=== PATIENT | male | born 1985 | race Hispanic/Latino ===

== ENCOUNTER 2024-05-28 12:34 | Observation (INO) | payer SELFPAY ==
[2024-05-28] MEDS ORDERED: ONDANSETRON 4 MG/2 ML VIAL ONE ×2 (12:58→17:19)
[2024-05-28] MEDS ORDERED: CEFAZOLIN SODIUM 1 GM/VIAL ONE (12:59)
[2024-05-28] MEDS ORDERED: FENTANYL CITR 100 MCG/2 ML ONE ×4 (12:59→16:52)
[2024-05-28] MEDS ORDERED: NA CHLORIDE 0.9% 100 ML ONE (13:00)
[2024-05-28] MEDS ORDERED: NA CHLORIDE 0.9% 1,000 ML ONE (13:00)
[2024-05-28 13:05] LABS: Absolute Eosinophils 0.1 K/uL (0-0.5); Absolute Lymphocytes (CBC) 3.1 K/uL (0.7-4.9); Absolute Monocytes 0.6 K/uL (0.1-1.3); Absolute Neutrophil 2.7 K/uL (1.8-8.0); Basophils % 0.5 % (0-1.3); Eosinophils % 1.8 % (0-4.4); Hematocrit 43.3 % (39.6-49.0); Hemoglobin 14.5 g/dL (13.6-17.9); Lymphocytes % 47.7 % (15.3-44.8); MCHC 33.5 g/dL (32.0-36.0); MCV 95.4 fL (80-100); Monocytes % 8.7 % (3.3-12.3); Neutrophils % 41.3 % (41.7-73.7); Platelets 162 thou/uL (152-406); RBC Red Blood Cell Count 4.54 M/uL (4.33-5.43); Red Cell Distribution Width 13.1 % (12.1-15.2)
[2024-05-28 13:15] LABS: Anion Gap 11.3 mEq/L (5.0-15.0); Potassium 3.3 mEq/L (3.5-5.1)
--- NOTE | 2024-05-28 14:09 | RAD REPORT ---
EXAM DESCRIPTION: RAD - Tib Fib Right - 05/28/2024 1:10 pm CLINICAL HISTORY: anterior tibia injury COMPARISON: No comparisons TECHNIQUE: Right tibia and fibula, 2 views. FINDINGS: Soft tissue irregularity with some soft tissue gas along the antro lateral aspect of the k nee and adjacent proximal lower leg. No fracture is identified. There is no dislocation or periosteal reaction noted. No acute or suspicio us bony finding. No radiopaque foreign body. IMPRESSION: Soft tissue abnormalities as above. No acute osseus findings.
--- NOTE | 2024-05-28 14:25 | ER ---
Nurse's Notes [facility] Name: Tammy Dickson Age: 39 yrs Sex: Male : 1985 Arrival Date: 05/28/2024 Time: 12:34 Bed 16 Private MD: Diagnosis: Laceration without foreign body of lower leg Presentation: 05/28 13:14 Chief complaint: Patient states: injured right lower leg while working. Coronavirus kj2 screen: At this time, the client does not indicate any symptoms associated with coronavirus-19. Ebola Screen: No symptoms or risks identified at this time. Initial Sepsis Screen: Does the patient meet any 2 criteria? No. Patient's initial sepsis screen is negative. Does the patient have a suspected source of infection? No. Patient's initial sepsis screen is negative. Risk Assessment: Do you want to hurt yourself or someone else? Patient reports no desire to harm self or others. Onset of symptoms was May 28, 2024. 13:14 Acuity: SRINIVASA 3 kj2 13:56 Method Of Arrival: Ambulatory kj2 Triage Assessment: 13:56 General: Appears uncomfortable, Behavior is cooperative. Injury Description: Laceration kj2 sustained to right leg. Historical: - Allergies: 14:24 No Known Allergies; kj2 - Home Meds: 14:24 None [Active]; kj2 - PMHx: 14:24 None; kj2 - PSHx: 14:24 None; kj2 - Immunization history:: Adult Immunizations unknown. - Infectious Disease History:: Denies. - Social history:: Smoking status: Patient/guardian denies using tobacco products. - Code Status:: Full code. Screenin:13 [facility] ED Fall Risk Assessment (Adult) History of falling in the last 3 months, kj2 including since admission Yes- single mechanical fall (1 pt) Confusion or Disorientation No (0 pts) Intoxicated or Sedated No (0 pts) Impaired Gait Yes (1 pt) Mobility Assist Device Used Yes (1 pt) Altered Elimination No (0 pt) Score/Fall Risk Level 0 - 2 = Low Risk. Abuse screen: Denies threats or abuse. Denies injuries from another. Nutritional screening: No deficits noted. Tuberculosis screening: No symptoms or risk factors identified. Assessment: 12:52 General: Appears uncomfortable, Behavior is cooperative. Pain: Complains of pain in kj2 right lower leg Pain currently is 10 out of 10 on a pain scale. Neuro: Level of Consciousness is awake, alert, obeys commands, Oriented to person, place, time, situation. Cardiovascular: Capillary refill < 3 seconds. Respiratory: Airway is patent Respiratory effort is even, unlabored. Musculoskeletal: Swelling lower leg cut open. 14:57 Reassessment: Patient appears in no apparent distress at this time. Patient and/or kj2 family updated on plan of care and expected duration. Pain level reassessed. Patient is alert, oriented x 3, equal unlabored respirations, skin warm/dry/pink. Vital Signs: 13:12 BP 136 / 90; Pulse 68; Resp 20; Temp 98.4; Pulse Ox 97% on R/A; kj2 13:58 BP 122 / 83; Pulse 65; Resp 18; Pulse Ox 97% on R/A; kj2 14:37 BP 117 / 80; Pulse 67; Resp 17; Pulse Ox 100% on R/A; kj2 ED Course: 12:44 Patient arrived in ED. ko1 12:47 Dylon Gabriel MD is Attending Physician. ec2 12:52 Melissa Sanchez, VALDEZ is Primary Nurse. kj2 12:54 Assist provider with laceration repair Dressed with 4X4s, Kerlix. kj2 12:58 Initial lab(s) drawn, by me, sent to lab. Inserted saline lock: 18 gauge in left mb9 antecubital area, using aseptic technique. Blood collected. Flushed with 10 mL NS. 12:59 Placed in gown. Bed in low position. Call light in reach. Side rails up X 1. Door mb9 closed. Noise minimized. Warm blanket given. Pillow given. 13:12 Tib Fib Right XRAY In Process Unspecified. EDMS 13:16 Triage completed. kj2 13:16 Arm band placed on. kj2 13:17 Provided Education on: call light, fall precaution. kj2 14:23 Knee Left 3 View XRAY In Process Unspecified. EDMS 14:24 Kel Partida is Hospitalizing Provider. ec2 14:39 1439 CM met with patient and Carolina at bedside in the ED exam room.Patient ane identified by name and . Demographic sheet confirmed and change sent to appropriate personnel. Prior to admission, patient reports he performs ADLs independently and without physical limitations. Patient reports no HH, home oxygen, DME or other medical services. No MPOA in place at this time. Patient reports he does not have a PCP at this time.CM provided community resource packet to include local clinics and information about medication assistance. wishes to return home upon discharge and his Carolina states she will transport him home. CM team will continue to follow and coordinate care. 14:56 Patient admitted, IV remains in place. kj2 14:56 Report given to VALDEZ Tran with OR. kj2 14:58 Dressings: 4X4s joy bandage. kj2 Administered Medications: 13:05 Drug: Ondansetron IVP 4 mg IVP once; over 2 minutes Route: IVP; Site: left antecubital; kj2 13:37 Follow up: Response: No adverse reaction; Pain is decreased kj2 13:08 Drug: fentaNYL (PF) IVP 50 mcg IVP once Route: IVP; Site: left antecubital; kj2 13:37 Follow up: Response: No adverse reaction; Pain is decreased kj2 13:10 Drug: ceFAZolin IVPB 1 grams IVPB once Route: IVPB; Site: left antecubital; kj2 13:46 Follow up: IV Status: Completed infusion; IV Intake: 100ml kj2 13:11 Drug: NS 0.9% IV 1000 ml IV at 1 bolus Per protocol; 1000 mL bolus Route: IV; Rate: 1 kj2 bolus; Site: left antecubital; 14:55 Follow up: Response: No adverse reaction; IV Status: Completed infusion; IV Intake: kj2 1000ml 14:37 Drug: fentaNYL (PF) IVP 50 mcg IVP once Route: IVP; Site: left antecubital; kj2 14:54 Follow up: Response: No adverse reaction; Pain is decreased kj2 Medication: 13:57 VIS not applicable for this client. kj2 Intake: 13:46 IV: 100ml; Total: 100ml. kj2 14:55 IV: 1000ml; Total: 1100ml. kj2 Outcome: 14:24 Decision to Hospitalize by Provider. ec2 14:57 Admitted to OR accompanied by nurse, via wheelchair, kj2 14:57 Condition: stable 14:57 Instructed on the need for admit, 14:59 Patient left the ED. kj2 Signatures: Dispatcher [employer] Анна Rogers RN RN ko1 Kathy, Marielena, RN RN mb9 Dylon Gabriel MD MD ec2 Melissa Sanchez RN RN kj2 Joy Dumont RN RN ane
--- NOTE | 2024-05-28 14:25 | EDPHYS ---
Physician Documentation [facility] Name: Tammy Dickson Age: 39 yrs Sex: Male : 1985 Arrival Date: 05/28/2024 Time: 12:34 Bed 16 Private MD: ED Physician Dylon Gabriel HPI: 05/28 12:49 This 39 yrs old Male presents to ER via Unassigned with complaints of tib/fib ec2 injury. 12:49 Patient arrives today for evaluation of a tib-fib injury. States that he injured ec2 himself with a hook on the right anterior tibia. Tetanus status updated 2 years ago. No significant medical problems, no medication allergies.. Historical: - Allergies: 14:24 No Known Allergies; kj2 - Home Meds: 14:24 None [Active]; kj2 - PMHx: 14:24 None; kj2 - PSHx: 14:24 None; kj2 - Immunization history:: Adult Immunizations unknown. - Infectious Disease History:: Denies. - Social history:: Smoking status: Patient/guardian denies using tobacco products. - Code Status:: Full code. ROS: 12:49 Constitutional: as per hpi ec2 Exam: 12:49 Constitutional: GEN: NAD Head: atraumatic Eyes: EOMI Ears: External ears are ec2 normal. CV: regular rate LUNGS: no respiratory distress ABD: non-distended SKIN: Right lower extremity with approximately 6 cm laceration with underlying soft tissue, muscle belly exposed. MSK: No obvious bony deformities of the right tibia, intact distal neurovascular status, intact strength. Vital Signs: 13:12 BP 136 / 90; Pulse 68; Resp 20; Temp 98.4; Pulse Ox 97% on R/A; kj2 13:58 BP 122 / 83; Pulse 65; Resp 18; Pulse Ox 97% on R/A; kj2 14:37 BP 117 / 80; Pulse 67; Resp 17; Pulse Ox 100% on R/A; kj2 MDM: 12:47 Patient medically screened. ec2 12:49 Data reviewed: vital signs. ec2 12:52 ED course: Patient arrives today for evaluation of a skin injury. Examination ec2 remarkable for skin findings as above. Will obtain radiograph of the tib-fib to rule if underlying bony fracture, will empirically give Ancef, will give fentanyl for pain control will obtain lab work as well. Evaluating for underlying bony fracture, no evidence of arterial bleeding.. 05/28 12:48 Order name: Basic Metabolic Panel; Complete Time: 13:57 ec2 05/28 12:48 Order name: CBC with Diff; Complete Time: 13:57 ec2 05/28 12:48 Order name: Type And Screen; Complete Time: 13:57 ec2 05/28 14:36 Order name: ABO/RH no charge EDMS 05/28 12:48 Order name: Tib Fib Right XRAY; Complete Time: 14:11 ec2 05/28 13:55 Order name: Knee Left 3 View XRAY ec2 05/28 12:48 Order name: Labs collected and sent; Complete Time: 12:58 ec2 05/28 12:48 Order name: NPO; Complete Time: 12:58 ec2 Administered Medications: 13:05 Drug: Ondansetron IVP 4 mg IVP once; over 2 minutes Route: IVP; Site: left antecubital; kj2 13:37 Follow up: Response: No adverse reaction; Pain is decreased kj2 13:08 Drug: fentaNYL (PF) IVP 50 mcg IVP once Route: IVP; Site: left antecubital; kj2 13:37 Follow up: Response: No adverse reaction; Pain is decreased kj2 13:10 Drug: ceFAZolin IVPB 1 grams IVPB once Route: IVPB; Site: left antecubital; kj2 13:46 Follow up: IV Status: Completed infusion; IV Intake: 100ml kj2 13:11 Drug: NS 0.9% IV 1000 ml IV at 1 bolus Per protocol; 1000 mL bolus Route: IV; Rate: 1 kj2 bolus; Site: left antecubital; 14:55 Follow up: Response: No adverse reaction; IV Status: Completed infusion; IV Intake: kj2 1000ml 14:37 Drug: fentaNYL (PF) IVP 50 mcg IVP once Route: IVP; Site: left antecubital; kj2 14:54 Follow up: Response: No adverse reaction; Pain is decreased kj2 Disposition Summary: 05/28/24 14:24 Hospitalization Ordered Notes: Hospitalization Status: Inpatient Admission ec2 Provider: Kel Partida ec2 Location: Telemetry/MedSurg (Inpatient) ec2 Condition: Stable ec2 Problem: new ec2 Symptoms: are unchanged ec2 Bed/Room Type: Standard ec2 Room Assignment: ec2 Diagnosis - Laceration without foreign body of lower leg ec2 Forms: - Medication Reconciliation Form ec2 - SBAR form ec2 - Leadership Thank You Letter ec2 Signatures: Dispatcher [employer] Dylon Blanc MD MD ec2 Melissa Sanchez RN RN kj2 Corrections: (The following items were deleted from the chart) 13:55 13:55 Knee Left 3 View+RAD.RAD.BRZ ordered. EDMS EDMS
--- NOTE | 2024-05-28 14:44 | RAD REPORT ---
EXAM DESCRIPTION: RAD - Knee Left 3 View - 05/28/2024 2:21 pm CLINICAL HISTORY: knee injury COMPARISON: No comparisons TECHNIQUE: Left knee, 3 views. FINDINGS: No fracture, dislocation or periosteal reaction.Small suprapatellar effusion. . No joint s pace narrowing. Soft tissue irregularity and extensive soft tissue gas along the ventral/lateral aspe ct of the knee and proximal lower leg, extending into the infrapatellar space. Punctate radiodensitie s just above the tibial tuberosity may relate to debris. IMPRESSION: Soft tissue abnormalities as above. Small suprapatellar joint effusion. No acute osseous findings.
[2024-05-28] MEDS: Ringers Lactate 1,000 ML IV ONE (15:22)
[2024-05-28] MEDS ORDERED: ACETAMINOPHEN 500 MG TAB PO PRN (15:24)
[2024-05-28] MEDS ORDERED: ONDANSETRON 4 MG/2 ML VIAL IV PRN (15:24)
--- NOTE | 2024-05-28 15:24 | P.HP ---
Certification for Inpatient Patient admitted to: Observation With expected LOS: <2 Midnights Patient will require the following post-hospital care: None Practitioner: I am a practitioner with admitting privileges, knowledge of patient current condition, hospital course, and medical plan of care. 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 He scraped his right leg on a nail and suffered a deep laceration. Its about 12 inches long and it goes to the bone. Patient has no other medical history. Patient had significant bleeding and patient was taken to the operating room for surgical repair by general surgery. Patient will be given IV antibiotics and gentle hydration, and will check H&H closely. Transfuse as needed. Monitor hemodynamics closely. Allergies No Known Allergies Allergy (Unverified 05/28/24 15:23) Home medications list reviewed: No - Past Medical/Surgical History Past Medical History: Patient denies medical history Past Surgical History: Patient denies surgical history - Family History Father Family History: Reviewed- Non-Contributory - Social History Smoking Status: Former smoker Alcohol use: No CD- Drugs: No Review of Systems 10-point ROS is otherwise unremarkable Physical Examination - Vital Signs Temperature: 98 F Blood Pressure: 140/80 Pulse: 80 Respirations: 18 Pulse Ox (%): 95 - Physical Exam General: Alert, In no apparent distress, Oriented x3 HEENT: Atraumatic, PERRLA, Mucous membr. moist/pink, EOMI, Sclerae nonicteric Neck: Supple, 2+ carotid pulse no bruit, No LAD, Without JVD or thyroid abnormality Respiratory: Clear to auscultation bilaterally, Normal air movement Cardiovascular: Regular rate/rhythm, Normal S1 S2 Gastrointestinal: Normal bowel sounds, Soft and benign, Non-distended, No tenderness Musculoskeletal: No clubbing, No swelling, Erythema, Tenderness Integumentary: No rashes Neurological: Normal gait, Normal speech, Normal strength at 5/5 x4 extr, Normal tone, Sensation intact, Cranial nerves 3-12 intact, Normal affect Lymphatics: No axilla or inguinal lymphadenopathy - Studies Laboratory Data (last 24 hrs) 05/28/24 05/28/24 12:53 12:53 WBC 6.50 Hgb 14.5 Hct 43.3 Plt Count 162 Sodium 138 Potassium 3.3 L BUN 16 Creatinine 1.24 Glucose 123 H Assessment & Plan - Problems (Diagnosis) (1) Leg laceration Current Visit: Yes Status: Acute - Plan Plan: 1. General surgery consultation for OR repair 2. Monitor serial H&H 3. IV antibiotics 4. Pain control 5. Wound care - Advance Directives Does patient have a Living Will: No Does patient have a Durable POA for Healthcare: No
[2024-05-28] MEDS ORDERED: propofoL 200 MG/20 ML VIAL IV ONE (15:43)
[2024-05-28] MEDS ORDERED: LIDOCAINE 2% MPF 5 ML VIAL ONE (15:43)
[2024-05-28] MEDS ORDERED: MIDAZOLAM HCL 2 MG/2 ML INJ ONE (15:44)
[2024-05-28] MEDS: LIDOCAINE HCL/EPINEPHRINE 20 ML MDV ONE (16:27)
--- NOTE | 2024-05-28 17:24 | P.OP ---
Preoperative diagnosis: LEFT lower extremity traumatic laceration / avulsion Postoperative diagnosis: LEFT lower extremity traumatic laceration / avulsion Primary procedure: Washout and Debridement of LEFT lower extremity traumatic laceration / avul Anesthesia: GETA Estimated blood loss: <10cc Specimen: Debridement Tissue Findings: ~ 9cm x 8 cm to exposed bone, disruption of fascia and muscle around tibia Complications: None Transferred to: Recovery Room Condition: Good
[2024-05-28] MEDS: HYDROMORPHONE HCL 1 MG/ML INJ ONE (17:45)
[2024-05-28] MEDS: MEPERIDINE HCL 25 MG/ML SYR ONE (17:50)
[2024-05-28 17:57] VITALS: O2SAT 100
[2024-05-28] MEDS: NA CHLORIDE 0.9% 1,000 ML IV SCH (20:15)
[2024-05-28] MEDS: PIPER TAZO 3.375 GM in NA CHLORIDE 0.9% 100 ML IV SCH (20:16)
--- NOTE | 2024-05-28 20:27 | OP ---
Date of Procedure: 05/28/2024 Surgeon: Melvin Lobo MD, Preoperative Diagnosis: Left lower extremity traumatic laceration/avulsion. Postoperative Diagnosis: Left lower extremity traumatic laceration/avulsion. Procedures Performed: 1.Washout of left lower extremity traumatic laceration. 2.Debridement of nonviable tissue from the left lower extremity below the knee and peripatellar lace ration/puncture. Anesthesia: General endotracheal. Estimated Blood Loss: Less than 10 cc. Specimens: Debridement tissue. Findings: Approximately 9 cm x 8 cm avulsion type injury to the bone which was exposed on the tibia with avulsion of fascial tissues as well as muscle loss with avulsion injury to surrounding tissues. In addition, there was a separate puncture in the peripatellar superior lateral aspect of the wound, not obviously involving the knee joint. Complications: None. Disposition: Patient transferred to recovery room in good condition. Procedure In Detail: After informed consent was obtained, the patient was brought into the operating room, prepped and draped in the usual sterile fashion after adequate anesthesia was achieved. I beg an with a pulse lavage device to clear out all nonviable tissue by cleansing the wound copiously in a ddition to a small puncture wound in the peripatellar region. After it was completely cleansed, I gr abbed and elevated some nonviable tissue at the peripatellar puncture wound and debrided it sharply d own to good viable tissue. Some debris was removed from this area and it was irrigated once again un til completely clear. I then turned my attention to the fascia overlying the muscle and tried to par tially reapproximate this using interrupted 3-0 Vicryl sutures in a vertical mattress type orientatio n with good approximation of the tissues. However, due to the significant loss of tissue here, it wa s not possible to completely cover the entire bone, and as such, portions of the bone were exposed. At this point, the area was copiously irrigated. Nonviable tissue from the fat planes was dissected free. Nonviable muscle was debrided as well. At this point, the hemostasis was achieved with electr ocautery. The wound was then cleansed once again with a pulse lavage device and the skin was reappro ximated with ange overlying the bone portions. However, the portions of the wound that had a cove ring over the bone were left slightly opened and the wound was packed with Vashe soaked 1 inch packin g and a sterile dressing placed over top. The patient tolerated the procedure well without incident or complication, transferred to PACU in good condition. All counts were correct at the end of the ca se. MADAN/MAXIME Voice ID: [id number] Report ID: [id number]
[2024-05-28] MEDS: MORPHINE 2 MG/ML SYR IV PRN (20:37)
[2024-05-28 21:04] VITALS: BMI 28.7
[2024-05-29] MEDS ORDERED: PIPER TAZO 3.375 GM in NA CHLORIDE 0.9% 100 ML IV SCH (01:00)
[2024-05-29 05:35] LABS: PT Prothrombin Time 11.5 SECONDS (9.4-12.5); PTT, Activated Partial Thromb 31.1 SECONDS (24.3-36.9); Protime INR 1.03
[2024-05-29 06:25] LABS: Absolute Eosinophils 0.1 K/uL (0-0.5); Absolute Lymphocytes (CBC) 1.4 K/uL (0.7-4.9); Absolute Monocytes 0.8 K/uL (0.1-1.3); Basophils % 0.2 % (0-1.3); Eosinophils % 1.6 % (0-4.4); Hematocrit 37.1 % (39.6-49.0); Hemoglobin 12.8 g/dL (13.6-17.9); Lymphocytes % 19.2 % (15.3-44.8); MCH 32.8 pg (27.0-35.0); MCHC 34.6 g/dL (32.0-36.0); MCV 94.9 fL (80-100); Monocytes % 11.2 % (3.3-12.3); Neutrophils % 67.8 % (41.7-73.7); Nucleated Red Blood Cells % 0.1 % (0-0); Platelets 143 thou/uL (152-406); RBC Red Blood Cell Count 3.91 M/uL (4.33-5.43); Red Cell Distribution Width 12.9 % (12.1-15.2)
[2024-05-29 06:44] LABS: Albumin 3.2 g/dL (3.4-5.0); Anion Gap 8.7 mEq/L (5.0-15.0); Bilirubin Total 1.9 mg/dL (0.2-1.0); Globulin 3.2 g/dL (2.3-3.5); Potassium 3.7 mEq/L (3.5-5.1); Protein, Total 6.4 g/dL (6.4-8.2)
--- NOTE | 2024-05-29 07:12 | P.PN ---
Date of Service: 05/29/24 subjective Review of Systems 10-point ROS is otherwise unremarkable Physical Examination - Vital Signs reviewed - Physical Exam General: Alert, In no apparent distress, Oriented x3 HEENT: Atraumatic, PERRLA, Mucous membr. moist/pink, EOMI, Sclerae nonicteric Neck: Supple, 2+ carotid pulse no bruit, No LAD, Without JVD or thyroid abnormality Respiratory: Clear to auscultation bilaterally, Normal air movement Cardiovascular: Regular rate/rhythm, Normal S1 S2 Gastrointestinal: Normal bowel sounds, Soft and benign, Non-distended, No tenderness Musculoskeletal: No clubbing, No swelling, Erythema, Tenderness Integumentary: No rashes Neurological: Normal gait, Normal speech, Normal strength at 5/5 x4 extr, Normal tone, Sensation intact, Cranial nerves 3-12 intact, Normal affect Lymphatics: No axilla or inguinal lymphadenopathy Assessment & Plan - Problems (Diagnosis) (1) Traumatic Leg laceration Current Visit: Yes Status: Acute - Plan Plan: 1. General surgery consultation for OR repair 2. Monitor serial H&H 3. IV antibiotics 4. Pain control 5. Wound care 6. s/p ID, washout with Surgery - Advance Directives Does patient have a Living Will: No Does patient have a Durable POA for Healthcare: No time spent with patient 30 minutes
--- NOTE | 2024-05-29 10:57 | P.DS ---
Admission Date: 05/28/24 Discharge Date: 05/29/24 Disposition: ROUTINE DISCHARGE Discharge Condition: GOOD Reason for Admission: Lower extremity laceration Brief History of Present Illness: Patient is a 39-year-old gentleman who was on the roof repairing shingles when he slipped and fell. He scraped his right leg on a nail and suffered a deep laceration. Its about 12 inches long and it goes to the bone. Patient has no other medical history. Patient had significant bleeding and patient was taken to the operating room for surgical repair by general surgery. Patient will be given IV antibiotics and gentle hydration, and will check H&H closely. Transfuse as needed. Monitor hemodynamics closely. - Physical Exam General: Alert, In no apparent distress, Oriented x3 HEENT: Atraumatic, PERRLA, Mucous membr. moist/pink, EOMI, Sclerae nonicteric Neck: Supple, 2+ carotid pulse no bruit, No LAD, Without JVD or thyroid abnormality Respiratory: Clear to auscultation bilaterally, Normal air movement Cardiovascular: Regular rate/rhythm, Normal S1 S2 Gastrointestinal: Normal bowel sounds, Soft and benign, Non-distended, No tenderness Musculoskeletal: No clubbing, No swelling, Erythema, Tenderness Integumentary: No rashes Neurological: Normal gait, Normal speech, Normal strength at 5/5 x4 extr, Normal tone, Sensation intact, Cranial nerves 3-12 intact, Normal affect Lymphatics: No axilla or inguinal lymphadenopathy Hospital Course: 39-year-old gentleman who was on the roof repairing shingles when he slipped and fell. He scraped his right leg on a nail and suffered a deep laceration. Its about 12 inches long and it goes to the bone. Patient has no other medical history. Patient had significant bleeding and patient was taken to the operating room for surgical repair by general surgery. Pain is controlled as needed analgesics, he is tolerating diet. Patient needs to follow-up with surgery in 1 week. Family educated on dressing changes, packing with nursing staff. Patient educated on gait training with crutches with PT. Stable to discharge home follow-up with PCP in 1 week Assessment Leg laceration discharged home on antibiotics, as needed analgesics, PT to eval for discharge on crutches, nonweightbearing to the right lower extremity Follow-up with surgery after discharge Educated on signs and symptoms of infection, instructed to notify surgery for any change of condition or symptoms of infection, Educated on the possible complication of DVT, PE instructed to go to the emergency room for any change of condition, chest pain, shortness of breath patient verbalized understanding Continue home medicines as previously prescribed GOAL: Clear understanding of disease process INSTRUCTIONS: Physician Discharge Instructions: -Follow-up with PCP in 1 to 2 weeks -Please call Dr. Dubon at [phone] if any questions regarding hospital stay -Please call nursing station at [phone] if any nursing or medication questions -Return to the emergency room if symptoms worsen Diet: ADA, low sodium Activity: Fall precautions Vital Signs/Physical Exam: Temp Pulse Resp BP Pulse Ox 97.2 F 67 16 131/77 98 05/29/24 08:00 05/29/24 08:00 05/29/24 08:00 05/29/24 08:00 05/29/24 08:00 Laboratory Data at Discharge: WBC 7.30 thou/uL (4.3-10.9) 05/29/24 05:01 Hgb 12.8 g/dL (13.6-17.9) L D 05/29/24 05:01 Hct 37.1 % (39.6-49.0) L 05/29/24 05:01 Plt Count 143 thou/uL (152-406) L 05/29/24 05:01 PT 11.5 SECONDS (9.4-12.5) 05/29/24 05:01 INR 1.03 05/29/24 05:01 APTT 31.1 SECONDS (24.3-36.9) 05/29/24 05:01 Sodium 136 mEq/L (136-145) 05/29/24 05:01 Potassium 3.7 mEq/L (3.5-5.1) 05/29/24 05:01 BUN 20 mg/dL (7-18) H 05/29/24 05:01 Creatinine 1.30 mg/dL (0.70-1.30) 05/29/24 05:01 Glucose 122 mg/dL (74-106) H 05/29/24 05:01 Total Bilirubin 1.9 mg/dL (0.2-1.0) H 05/29/24 05:01 AST 17 U/L (15-37) 05/29/24 05:01 ALT 20 U/L (16-61) 05/29/24 05:01 Alkaline Phosphatase 49 U/L (45-117) 05/29/24 05:01 Home Medications: Codeine/APAP [Tylenol W/Codeine #3 tab] 1 tab PO Q6HP PRN #30 tab 05/29/24 Smz./Tmp. [Bactrim Ds 800 MG/160 MG] 1 tab PO BID #14 tab 05/29/24 New Medications: Smz./Tmp. [Bactrim Ds 800 MG/160 MG] 1 tab PO BID #14 tab Codeine/APAP [Tylenol W/Codeine #3 tab] 1 tab PO Q6HP PRN #30 tab PRN Reason: Pain Physician Discharge Instructions: 39-year-old gentleman who was on the roof repairing shingles when he slipped and fell. He scraped his right leg on a nail and suffered a deep laceration. Its about 12 inches long and it goes to the bone. Patient has no other medical history. Patient had significant bleeding and patient was taken to the operating room for surgical repair by general surgery. Pain is controlled as needed analgesics, he is tolerating diet. Patient needs to follow-up with surgery in 1 week. Family educated on dressing changes, packing with nursing staff. Patient educated on gait training with crutches with PT. Stable to discharge home follow-up with PCP in 1 week Assessment Leg laceration discharged home on antibiotics, as needed analgesics, PT to eval for discharge on crutches, nonweightbearing to the right lower extremity Follow-up with surgery after discharge Educated on signs and symptoms of infection, instructed to notify surgery for a ny change of condition or symptoms of infection, Educated on the possible complication of DVT, PE instructed to go to the emergency room for any change of condition, chest pain, shortness of breath pa frandy verbalized understanding Continue home medicines as previously prescribed GOAL: Clear understanding of disease process INSTRUCTIONS: Physician Discharge Instructions: -Follow-up with PCP in 1 to 2 weeks -Follow-up with Surgery, Dr. Lobo, for outpt follow-up -Please call Dr. Dubon at [phone] if any questions regarding hospital stay -Please call nursing station at [phone] if any nursing or medication questions -Return to the emergency room if symptoms worsen Diet: ADA, low sodium Activity: Fall precautions Followup: Melvin Lobo MD [ACTIVE - CAN ADMIT] - 1-2 Weeks NONE,NONE [Primary Care Provider] - Time spent managing pt's care (in minutes): 55
[2024-05-29 12:39] VITALS: TEMP 97.5
[2024-05-29 16:47] VITALS: BP 136/74
== END 2024-05-29 18:13 | disposition home or self-care (01) ==
LOC: ER 12:34 → ERHOLD 15:32 → 2ND 15:46
PROVIDERS: ADMIT Hospitalist; ATTEND Hospitalist
PROC: 0JQP0ZZ Repair Left Lower Leg Subcutaneous Tissue and Fascia, Open Approach (ICD-10-PCS; 2024-05-28)
PROC: 0KDT0ZZ Extraction of Left Lower Leg Muscle, Open Approach (ICD-10-PCS; principal; 2024-05-28 20:30)
DX: S81.812A Laceration without foreign body, left lower leg, initial encounter (principal); W17.89XA Other fall from one level to another, initial encounter; Y93.89 Activity, other specified; Y92.018 Other place in single-family (private) house as the place of occurrence of the external cause
CPT/HCPCS: 36415; 80048; 80053; 85025; 85610; 85730; 86850; 86900; 86901; 88304; 96361; 96365; 96375; 97161; 99285; G0378; J0690; J1170; J2001; J2175; J2250; J2270; J2405; J2543; J2704; J3010; J7030; J7120